=== PATIENT | female | born 1930 | race Caucasian/White ===

== ENCOUNTER 2020-09-14 17:45 | Emergency (ER) | payer MEDICARE, OTHER ==
[~2020-09-14] VITALS: Ht 162.6 cm; Wt 77.6 kg
--- NOTE | 2020-09-14 18:00 | NUR ---
[id number] home c/o body pain, sob 1 day s/p 1st dose covid vaccine 09/10/20. Patient a/ox4, breathing even and unlabored, room air with spo2 of 94-95%. Attached to the desk monitor. Needs attended. Kept comfortable.
--- NOTE | 2020-09-14 18:00 | NUR ---
DR. GIORDANO AT BEDSIDE FOR EVAL.
[2020-09-14] MEDS ORDERED: ACETAMINOPHEN 325 MG TABLET PO ONE (19:00)
[2020-09-14] MEDS ORDERED: ACETAMINOPHEN 325 MG TABLET ONE (19:01)
--- NOTE | 2020-09-14 19:05 | NUR ---
REC'D REPORT FROM DARRYL MACKAY FOR JULY
--- NOTE | 2020-09-14 19:09 | NUR ---
patient refused tylenol, she said she took it at 1600.
--- NOTE | 2020-09-14 19:13 | NUR ---
IV line established, blood drawn and sent to lab. Patient still unable to give urine at this time. Will check back later.
[2020-09-14 19:15] LABS: BASOPHILS % (AUTO) 0.3 % (0.0-2.0); EOSINOPHILS % (AUTO) 0.1 % (0.0-6.0); HEMATOCRIT 38 % (33-45); HEMOGLOBIN 12.6 g/dL (11.5-14.8); LYMPHOCYTES # (AUTO) 1.6 /CMM (0.8-4.8); LYMPHOCYTES % (AUTO) 28.6 % (20.0-44.0); MEAN CORPUSCULAR HGB CONC 33 g/dl (31.0-36.0); MEAN CORPUSCULAR VOLUME 87 fL (82-100); MONOCYTES # (AUTO) 0.4 /CMM (0.1-1.30); MONOCYTES % (AUTO) 7.2 % (2.0-12.0); NEUTROPHILS # (AUTO) 3.5 /CMM (1.8-8.9); NEUTROPHILS % (AUTO) 63.8 % (43.0-81.0); PLATELET COUNT (AUTO) 187 /CMM (150-450); WHITE BLOOD COUNT (AUTO) 5.5 K/uL (4.3-11.0)
[2020-09-14 19:33] LABS: CALCIUM, SERUM 9.3 mg/dL (8.5-10.1); CARBON DIOXIDE 23 mmol/L (21-32); CHLORIDE 91 mmol/L (98-107); CREATININE 1.2 mg/dL (0.6-1.3); GLUCOSE 136 mg/dL (74-106); SODIUM SERUM 126 mmol/L (136-145); UREA NITROGEN, BLOOD 20 mg/dL (7-18)
[2020-09-14 19:38] LABS: ALANINE AMINOTRANSFERASE 20 U/L (12-78); ALBUMIN 2.9 g/dL (3.4-5.0); ALKALINE PHOSPHATASE 65 U/L (46-116); ASPARTATE AMINOTRANSFERASE 27 U/L (15-37); BILIRUBIN,DIRECT 0.1 mg/dL (0.0-0.2); BILIRUBIN,TOTAL 0.3 mg/dL (0.2-1.0); LIPASE 120 U/L (73-393); TOTAL PROTEIN, SERUM 7.1 g/dL (6.4-8.2)
[2020-09-14] MEDS ORDERED: POTASSIUM CHLORIDE 20 MEQ TAB.PRT.SR PO ONE ×2 (20:00→20:39)
[2020-09-14] MEDS ORDERED: IV NS 0.9% 1,000 ML IV ONE (20:00)
[2020-09-14 20:06] LABS: BILIRUBIN,URINE Negative (NEGATIVE); COLOR,URINE YELLOW (YELLOW); LEUKOCYTE ESTERASE ,URINE Negative (NEGATIVE); NITRITE, URINE Negative (NEGATIVE); PH,URINE 5.5 (5.0-8.0); PROTEIN,URINE Trace mg/dl (NEGATIVE); UGLUCOSE Negative (NEGATIVE); UROBILINOGEN,URINE 0.2 EU/dL (0.2)
[2020-09-14 20:13] LABS: BACTERIA,URINE Rare /HPF (None Seen); SQUAMOUS EPITHELIAL CELL,UR Few /HPF (None Seen); WBC,URINE NONE SEEN /HPF (0-3)
--- NOTE | 2020-09-14 20:15 | NUR ---
PT RESTING WITH BLANKETS AND CALL LIGHT WITHIN REACH.
--- NOTE | 2020-09-14 21:35 | NUR ---
SPOKE TO DAUGHTER REGARDING PICKUP AFTER D/C. ETA 40MIN
[2020-09-14] MEDS ORDERED: POTA20TA83 PO (22:09)
--- NOTE | 2020-09-14 22:45 | NUR ---
Patient discharged to home in stable condition. Written and verbal after care instructions given. Patient verbalizes understanding of instruction. IV removed. Catheter intact and site benign. Pressure and 4x4 applied to site. No bleeding noted. Pt ambulatory with a steady gait
[2020-09-14 22:46] VITALS: BP 137/78
== END 2020-09-14 22:45 | disposition home or self-care (01) ==
LOC: ER 17:54
DX: E86.0 Dehydration (principal); T50.B95A Adverse effect of other viral vaccines, initial encounter; E87.1 Hypo-osmolality and hyponatremia; E87.6 Hypokalemia; E88.09 Other disorders of plasma-protein metabolism, not elsewhere classified; I10 Essential (primary) hypertension; E11.9 Type 2 diabetes mellitus without complications; Z88.0 Allergy status to penicillin; Z88.5 Allergy status to narcotic agent; Y92.89 Other specified places as the place of occurrence of the external cause
CPT/HCPCS: 36415; 71045; 80048; 80076; 81001; 82962; 83690; 84484; 85025; 85730; 93005; 96360; 99285; J7030